=== PATIENT | female | born 1955 | race Caucasian/White ===

== ENCOUNTER 2018-08-30 11:55 | Emergency (ER) | payer MEDICARE, SELFPAY ==
[2018-08-30 11:57] VITALS: BP 132/82; PULSE 91; RESP 21; TEMP 36.9; O2SAT 96; BMI 32.9
[2018-08-30 12:02] VITALS: O2SAT 97
--- NOTE | 2018-08-30 12:34 | RAD_ITS ---
STUDY: X-RAY CHEST REASON FOR EXAM: Female, 63 years old. Shortness of breath. Dyspnea. TECHNIQUE: Single frontal view of the chest. COMPARISON: None. FINDINGS: The lungs are hyperexpanded. There is no demonstrated pleural abnormality. There is borderline cardiomegaly. Normal mediastinum and phillip. Normal visualized pulmonary arteries. Normal visualized aortic arch and descending thoracic aorta. Normal visualized thoracic spine. Normal visualized ribs, clavicles, and shoulders. There is no demonstrated abnormality of the visualized soft tissue structures of the upper abdomen. RAD/Chest 1 View (Portable) IMPRESSION: Borderline cardiomegaly with hyperexpansion. No acute pathology. Electronically Signed: Pardeep Cheung MD at 13:12 EST , Service support ,
--- NOTE | 2018-08-30 12:34 | EKG12_ITS ---
Test Reason : SOB Blood Pressure : / mmHG Vent. Rate : 091 BPM Atrial Rate : 091 BPM P-R Int : 154 ms QRS Dur : 068 ms QT Int : 356 ms P-R-T Axes : 076 078 063 degrees QTc Int : 437 ms Normal sinus rhythm Normal ECG Confirmed by ISIS HERNANDEZ, CATARINO ([id number]), market editor PAVEL CASIANO ([id number] on 09/03/2018 5:03:22 PM Referred By: ALBARO Confirmed By:CATARINO MARINELLI MD
[2018-08-30] MEDS: Albuterol 2.5 MG/3 ML VIAL.NEB. INHALATION ×2 (12:44)
[2018-08-30] MEDS: Ipratropium/Albuterol Sulfate 3 ML AMPUL.NEB INHALATION (12:44)
[2018-08-30 12:45] VITALS: PULSE 86; RESP 20
[2018-08-30 12:55] LABS: Absolute Lymphocyte Count 1.01 X10^3/ul (0.83-4.51); Absolute Neutrophil Count 1.8 X10^3/uL (2.0-7.7); Basophil# 0.02 X10^3/uL; Basophil% 0.6 % (0-1); Eosinophil# 0.12 X10^3/uL; Eosinophils% 3.7 % (0-5); Hematocrit 41.5 % (37-47); Hemoglobin 13.4 g/dl (12.0-15.0); Lymphocyte # 1.01 X10^3/ul (4.0); Lymphocyte % 31.1 % (19-41); Mean Corp Hgb Conc 32.3 g/gl (32-36); Mean Corpuscular Hgb 30.6 pg (27.0-32.0); Mean Corpuscular Volume 94.7 fL (81-99); Mean Platelet Vol. 10.2 fl (6.2-12.0); Monocyte% 9.2 % (0-10); Neutrophil % 55.4 % (47-70); POSITIVE COUNT NO; POSITIVE DIFFERENTIAL NO; POSITIVE MORPHOLOGY NO; Platelet Count 82 K/mm3 (150-450); RBC Distribution Width CV 14.6 % (11.6-14.6); RBC Distribution Width SD 50.2 fl (35.1-43.9); Red Blood Count 4.38 M/mm3 (4.2-5.4); White Blood Count 3.3 K/mm3 (4.4-11.0)
[2018-08-30] MEDS: MethylPREDNISolone 125 MG/2 ML Vial IV (13:07)
[2018-08-30 13:08] LABS: Anion Gap 8 (5-15); BUN 13 mg/dL (7-18); BUN/Creat Ratio 15.2 RATIO (10-20); Calcium,Total 8.7 mg/dL (8.5-10.1); Chloride 106 mmol/L (98-107); Creatinine, Serum 0.85 mg/dL (0.55-1.02); EST Glomerular Filtration Rate 72 mL/min (>60); Est Glom Filt Rate - Afr Amer 87 mL/min (>60); Glucose 123 mg/dL (74-106); Sodium Level 141 mmol/L (136-145)
[2018-08-30 15:21] VITALS: BP 125/75; PULSE 93; RESP 20; O2SAT 93
--- NOTE | 2018-08-30 16:14 | ED.DCSUM_ITS ---
- ER Visit Summary Date of Service: 08/30/18 Chief Complaint: Cough shortness of breath History of Present Illness: The patient is a 63 F who recently moved to [place] 2 weeks ago and has not followed up with PCP for her chronic COPD. She uses oxygen at home as needed but currently does not have her oxygen. She has no fever or chills. She has a chronic cough. Physical Examination: Not appear in acute distress. Slightly dry mucous membranes, no obvious facial deformity No C-spine tenderness supple neck. Regular rate and rhythm without any obvious murmurs Course lungs bilaterally speaking in full sentences without any obvious respiratory distress Abdomen soft and nontender no guarding or rebound Moves all extremities without any difficulty or pain. Skin does not show any obvious rashes or lesions, no trauma. Alert oriented ?3 with no gross focal deficit Emergency Department Course and Treatment: Initially patient had slight hypoxia, wheezing. After nebulizers, Solu-Medrol and observation she is now saturating at 94% on room air. I will discharge her with antibiotics, steroids and an inhaler. I will follow her up with PCP so she can get her home oxygen back. At this time he is oxygenating well enough for home. Disposition: Discharge stable condition Impression: COPD exacerbation This note was generated with [employer] dictation software. It may contain incorrect words, spelling, and punctuation that were not noted in review of the chart prior to signing ED Disposition - Plan for ED Patient: Disposition: Home or Assisted Living Chief Complaint: Shortness of Breath Prescriptions: Albuterol IH (ProAir) [Proair Hfa (SP)Vent Pts] 1 puff INHALATION Q4H PRN PRN #1 inhaler PRN Reason: Sob &/Or Wheezing Azithromycin 250 mg PO DAILY #4 tab Referrals: Barrie Forrester MD [STAFF PHYSICIAN] - 3-5 Days
[2018-08-30] MEDS: Triamcinolone Acetonide 40 MG/ML Vial IM (16:42)
[2018-08-30] MEDS: Azithromycin 250 MG Tablet 500 MG PO (16:42)
[2018-08-30 16:49] VITALS: BP 126/81; PULSE 91; RESP 16; O2SAT 98
--- NOTE | 2018-08-30 17:00 | CM.ED ---
SOCIAL WORK ASSESSMENT REFERRAL DATE:08/30/18 DATE OF ASSESSMENT:08/30/18 INFORMANT: PHYSICIAN REASON FOR CONSULT: D/C NEEDS, POSSIBLE HOME O2 INFORMATION OBTAINED FROM: PATIENT LIVING ARRANGEMENTS: PATIENT STATES RECENTLY MOVED TO [place] FROM [place], [place]. PT WAS LIVING WITH HER SISTER AND IS NOW MOVING IN WITH NEPHEW WHO IS HANDICAPPED. EMPLOYMENT/FINANCIAL: PT RECEIVES SOCIAL SECURITY DISABILITY SUPPORTS: PT STATES GOOD SUPPORT FROM FAMILY AND SERVICE PRINCESS NOHELIA. SOCIAL/FAMILY STRESSORS: PT VOICED FRUSTRATIONS WITH MOVING PROCESS AND OBTAINING SERVICES. PT GAVE PERMISSION FOR THIS WORKER TO SPEAK WITH SISTER REGARDING ALL D/C NEEDS TO ASSIST WITH COORDINATION OF TRANSPORTATION TO APPOINTMENTS. MENTAL HEALTH HX: PT ADMITS TO HX OF ANXIETY AND DEPRESSION AND STATES FOLLOWED WITH PSYCH IN [place]. PT IS PRESCRIBED SEROQUEL AND TRAZODONE. PT STATES DOCTOR IN [place] WROTE HER A 3 MONTH PRESCRIPTION WHEN SHE MOVED. PT STATES WILL NEED TO ESTABLISH SERVICES HERE IN [place]. DISCUSSED OPTIONS AND PT OPEN TO THIS WORKER SCHEDULING APPOINTMENT WITH THE [facility]. SUBSTANCE ABUSE HX: PT DENIES HX. INTERVENTIONS: SET UP NEW PT APPOINTMENT FOR PRIMARY CARE, SET UP INTAKE APPOINTMENT WITH THE [facility]. CALLED [facility] REGARDING POSSIBLE NEED FOR HOME O2 PT HAD O2 PREVIOUSLY. PER WORKER, INSURANCE DOES NOT COVER O2 IN THE ED. PT WOULD NEED PRIMARY CARE DOCTOR TO FOLLOW. UPDATED DR. IRVIN. ASSESSMENT: PT IS A 63 Y/O FEMALE WHO PRESENTS TO THE ED WITH SOB. PT STATES MOVED TO [place] FROM [place], [place] A COUPLE WEEKS AGO. PT WAS LIVING WITH HER SISTER, DAVE [phone] BUT IS IN THE PROCESS OF MOVING IN WITH HER NEPHEW. PT STATES IS INDEPENDENT WITH ADLS. SISTER ASSISTS WITH TRANSPORTATION NEEDS. DISCUSSED NEEDS FOR HOME GOING. PT OPEN TO THIS WORKER SETTING UP NEW PT APPOINTMENTS FOR PRIMARY CARE AND MENTAL HEALTH. PT ADMITS TO HX OF ANXIETY AND DEPRESSION AND HAS RAJAT POZONAMRATANANNETTE IN ROOM WITH HER. PT SHOWED THIS WORKER PAPERWORK FOR RAJAT POZO. PT VERY COOPERATIVE AND THANKFUL FOR THIS WORKER'S ASSISTANCE. CALL TO [facility]. NEW PT APPOINTMENT SCHEDULED FOR 09/03/17 AT 10AM. CALL TO THE [facility]. WORKER REPORTS OFFICE IS CLOSED AND HAS NO ONE AVAILABLE TO SCHEDULE INTAKE APPOINTMENT. THIS WORKER TO FOLLOW UP ON SUNDAY. UPDATED PT AND PT'S SISTER ON APPOINTMENTS. PLAN: HOME WITH NEW PATIENT APPOINTMENT SCHEDULED WITH PRIMARY CARE AND COUNSELING-F/U WITH SCHEDULING ON 09/02/18.
--- NOTE | 2018-09-02 12:10 | CM.ED ---
SOCIAL WORK NOTE CALL TO THE [facility]. INTAKE APPOINTMENT SCHEDULED FOR PT-APPOINTMENT 09/17/18 AT 9:30A. CALL TO PT'S SISTER, DAVE PER REQUEST TO UPDATE ON APPOINTMENT TIME AND DATE. PER DAVE, WILL UPDATE PT AND ASSIST WITH TRANSPORTATION TO AND FROM APPOINTMENT.
== END 2018-08-30 16:49 | disposition home or self-care (01) ==
PROVIDERS: Emergency Provider Emergency Medicine
DX: J44.1 Chronic obstructive pulmonary disease with (acute) exacerbation (principal); Z72.0 Tobacco use
CPT/HCPCS: 71045; 80048; 84484; 85025; 93005; 94640; 96372; 96374; 99285; A4216

== ENCOUNTER 2019-01-12 11:23 | Emergency (ER) | payer MEDICARE, SELFPAY ==
[2019-01-12 11:24] VITALS: BP 132/76; PULSE 89; RESP 15; TEMP 36.9; O2SAT 97; BMI 29.2
--- NOTE | 2019-01-12 11:57 | ED.RN ---
PT STATES SHE HAS BEEN HOMELESS FOR 6 DAYS, SOMETIMES 2 DAYS DEPENDING ON THE CONVERSATION. ONLY ITEMS THE PT BROUGHT WITH HER WAS HER PURSE AND HER SERVICE DOG DRESSED NICELY IN ITS CLEAN DRESS. PT ALSO IS DRESSED NICELY AND NO SIGN ARE PRESENT OF THE PT WALKING NOR SLEEPING IN THE KIM. PT IS A+OX3. STATES SHE IS GETTING HER SOCIAL SECURITY CHECK IN A COUPLE DAYS. STATES SHE DOES HAVE FAMILY IN [place]OWN BUT THEY DON'T WANT TO HELP HER. PT IS AMBULATING AROUND THE ROOM WITHOUT ANY SIGN OF DISTRESS OR DIFFICULTY. DOG WAS OFFERED A CHHAYA CRACKER AND REFUSED IT.
--- NOTE | 2019-01-12 12:09 | ED.RN ---
WAREHOUSE TEAM MEMBER IS NOT AVAILABLE AT THE HOSPITAL TODAY. PHYSICIAN NOTIFIED.
--- NOTE | 2019-01-12 12:18 | ED.VISSUMM ---
- ER Visit Summary Date of Service: 01/12/19 Chief Complaint: Nausea History of Present Illness: The patient is a 63 F presents the emergency department by dorothy with multiple complaints. The patient states that she is been homeless for the past 5 days. She states she is been living in the [facility]. She states she does not get her disability check for 4 days and when she gets it, she is going to be able to move in to trailer. However, she states she is been off out on her own with her service dog. [facility] because they would not [facility] her in. She denies any fevers or chills. She states that she has had a difficult time finding food and has been mildly nauseated. She denies cough or shortness of breath. Physical Examination: Vital signs reviewed General: Well-nourished, well-developed Head: Normocephalic, atraumatic Eyes: Pupils equal and reactive, extraocular muscles intact Neck, supple, no lymphadenopathy Heart: Regular rate and rhythm Respiratory: No distress, clear bilaterally Abdomen: Soft, nontender, nondistended, no peritoneal signs Back: Nontender Extremities: Nontender, no edema, no cords Skin: Normal color no rash Neuro: Alert and oriented, no focal or lateralizing deficits Test Results: [] Emergency Department Course and Treatment: The patient is absolutely no distress. She is very well-appearing. She has no systemic symptoms. She does not appear as if she is been living outdoors. She has a very reassuring exam. The patient was given fluid and I gave her a dose of her Seroquel. She now states that her brother will come and pick her up and take her home. The patient will be discharged. Treatment Plan: [] Disposition: Discharge Impression: 1. Nausea This note was generated with [employer] dictation software. It may contain incorrect words, spelling, and punctuation that were not noted in review of the chart prior to signing ED Disposition - Plan for ED Patient: Instructions: ED Screening Exam Medical Nonurgent Referrals: Rey Anderson MD [Primary Care Provider] -
--- NOTE | 2019-01-12 12:18 | ED.RN ---
PT WAS GIVEN A SANDWICH, CHEESE STICK AND WATER. EXPLAINED THAT WE DID NOT HAVE SOCIAL WORK AVAILABLE TO COME SEE HER. PT STATED THAT WAS OK AND REQUESTED A DOSE OF HER SEROQUEL AND TO CALL HER BROTHER TO COME PICK HER UP.
[2019-01-12] MEDS: QUEtiapine 100 MG Tablet 400 MG PO (12:51)
--- NOTE | 2019-01-12 12:55 | ED.RN ---
PT GIVEN MEDS AND DISCHARGE INSTRUCTIONS. ALSO CALLED THE [facility] FOR HER SINCE HER BROTHER IS NOT ANSWERING HIS PHONE. PT STATES THE ENVIRONMENTAL SYSTEMS COORDINATOR THERE TOLD HER SHE WOULD GET THE PT A CAB TO RETURN FROM THE HOSPITAL.
[2019-01-12 12:56] VITALS: BP 136/74; PULSE 62; RESP 15; O2SAT 97
== END 2019-01-12 12:56 | disposition home or self-care (01) ==
PROVIDERS: Emergency Provider Emergency Medicine; Family Provider Internal Medicine; PCP Internal Medicine
DX: R11.0 Nausea (principal); J44.9 Chronic obstructive pulmonary disease, unspecified; Z59.0 Homelessness
CPT/HCPCS: 99284

== ENCOUNTER 2020-06-02 20:12 | Emergency (ER) | payer MEDICARE, MEDICAID, SELFPAY ==
[2020-06-02] VITALS (7 sets, daily range): BP systolic 92–109; BP diastolic 58–75; PULSE 84–108; RESP 16–20; TEMP 36.6–36.9; O2SAT 92–99; BMI 32.5
--- NOTE | 2020-06-02 20:23 | EKG12_ITS ---
Test Reason : WEAKNESS Blood Pressure : / mmHG Vent. Rate : 091 BPM Atrial Rate : 091 BPM P-R Int : 148 ms QRS Dur : 066 ms QT Int : 332 ms P-R-T Axes : 071 071 052 degrees QTc Int : 408 ms Normal sinus rhythm Low voltage QRS Nonspecific ST abnormality Abnormal ECG Confirmed by OFE HERNANDEZ, OLI ([id number]), editor city JOSÉ ANTONIO LI ([id number]) on 06/08/2020 8:14:06 AM Referred By: EDUARDO Confirmed By:OLI THAKUR MD
--- NOTE | 2020-06-02 20:25 | ED.VIS.GEN ---
History of Present Illness Chief Complaint: Weakness Informant: Patient Narrative: 64-year-old female with no significant past medical history presents with concern for rash. Patient states that she has weakness and a rash that began on her legs yesterday. States it is spread to her upper extremities. States that she does have pain in her legs but not in her arms. Denies any headache, vision change, fever, chills, cough, nausea, vomiting, abdominal pain, chest pain, shortness of breath. Past Medical History - Allergies and Home Meds Allergies/Adverse Reactions: Allergies ondansetron [From Zofran] Allergy (Verified 06/02/20 20:20) Anaphylaxis Primary Care Physician: Rey Anderson MD [Primary Care Provider] - Past Medical History: None Lives: Alone Smoking Status: Current every day smoker Alcohol: None Drugs: None Review of Systems General: Reports: Malaise. Denies: Chills, Fever, Sweats Eyes: Denies: Visual changes - bilaterally, Diplopia ENT: Denies: Rhinorrhea, Sore throat Cardiovascular: Denies: Chest pain, Palpitations Respiratory: Denies: Dyspnea, Cough, Dyspnea on exertion Gastrointestinal: Denies: Abdominal pain, Nausea, Vomiting, Diarrhea, Melena, Hematochezia Genitourinary: Denies: Dysuria, Hematuria, Frequency Musculoskeletal: Denies: Back pain, Extremity Pain Skin: Reports: Rash. Denies: Wounds Neurological: Denies: Headache, Weakness, Numbness Physical Exam Vital Signs/Narrative: Vital Signs Temp Pulse Resp BP Pulse Ox 06/02/20 20:13 98.5 F 108 H 20 H 109/58 L 92 Inital Vital Signs reviewed: Yes General: Well nourished, Well developed, No Acute Distress Head: Normocephalic, Atraumatic Eyes: Perrl, EOMI ENT: Moist mucous membranes, No rhinorrhea Neck: Supple, Nontender Cardiovascular: Regular rate, Regular rhythm, No murmurs Respiratory: No distress, CTA bilaterally, Chest nontender Abdomen: Soft, Nontender, Nondistended, Normal bowel sounds Back: Nontender, Normal Inspection Extremities: Nontender, No edema Skin: - - Diffuse peticheal/purpuric rash. Neurological: Alert, Oriented x3, Cranial nerves II-XII grossly intact, Normal Strength, Normal Sensation Psychological: Normal affect, Normal Mood Diagnostic/Tx/Re-eval Clinical Impression(s) from Imaging Studies Chest X-Ray 06/02/20 21:10 IMPRESSION: No acute cardiopulmonary process identified. Electronically Signed: Gurdeep Dominguez, at 22:03 EDT Tel , Service support , Laboratory Data 06/02/20 06/02/20 06/02/20 20:35 20:40 20:40 WBC 2.9 L RBC 3.96 L Hgb 12.8 Hct 39.2 MCV 99.0 MCH 32.3 H MCHC 32.7 RDW Std Deviation 52.6 H RDW Coeff of Jaci 14.5 Plt Count 35 L* MPV 10.0 Immature Gran % (Auto) 0.300 Neut % (Auto) 64.2 Lymph % (Auto) 22.3 [place] % (Auto) 11.5 H Eos % (Auto) 1.4 Baso % (Auto) 0.3 Absolute Neuts (auto) 1.8 L Absolute Lymphs (auto) 0.64 L Nucleated RBC % 0 Differential Comment SCANNED Diff Path Review May foll Platelet Estimate MKD DEC PT 13.4 INR 1.1 APTT 21.6 L D-Dimer Quant (PE/DVT) 3.23 H* Sodium Potassium Chloride Carbon Dioxide Anion Gap BUN Creatinine Estim Creat Clear Calc Est GFR (MDRD) Af Amer Est GFR (MDRD) Non-Af BUN/Creatinine Ratio Glucose Lactic Acid Calcium Total Bilirubin AST ALT Alkaline Phosphatase Lactate Dehydrogenase Troponin I Total Protein Albumin Globulin Albumin/Globulin Ratio Urine Color Roseanna Urine Clarity Clear Urine pH 5.0 Ur Specific [place] 1.025 Urine Protein 30 H Urine Glucose (UA) Normal Urine Ketones 5 H Urine Occult Blood 250 H Urine Nitrite Negative Urine Bilirubin 1 H Urine Urobilinogen 4 H Ur Leukocyte Esterase 100 H Urine RBC 5-10 SEEN Urine WBC 0-5 SEEN Ur Squamous Epith Cells 0-5 SEEN Urine Bacteria RARE Hyaline Casts 5-10 SEEN Urine Mucus 2+ 06/02/20 06/02/20 20:40 21:10 WBC RBC Hgb Hct MCV MCH MCHC RDW Std Deviation RDW Coeff of Jaci Plt Count MPV Immature Gran % (Auto) Neut % (Auto) Lymph % (Auto) [place] % (Auto) Eos % (Auto) Baso % (Auto) Absolute Neuts (auto) Absolute Lymphs (auto) Nucleated RBC % Differential Comment Diff Path Review Platelet Estimate PT INR APTT D-Dimer Quant (PE/DVT) Sodium 138 Potassium 4.0 Chloride 103 Carbon Dioxide 26.0 Anion Gap 9 BUN 19 H Creatinine 0.96 Estim Creat Clear Calc 51.12 Est GFR (MDRD) Af Amer 75 Est GFR (MDRD) Non-Af 62 BUN/Creatinine Ratio 19.8 Glucose 143 H Lactic Acid 2.4 H* Calcium 8.1 L Total Bilirubin 0.40 AST 37 ALT 30 Alkaline Phosphatase 42 L Lactate Dehydrogenase 230 Troponin I < 0.015 Total Protein 7.5 Albumin 2.6 L Globulin 4.9 H Albumin/Globulin Ratio 0.5 L Urine Color Urine Clarity Urine pH Ur Specific [place] Urine Protein Urine Glucose (UA) Urine Ketones Urine Occult Blood Urine Nitrite Urine Bilirubin Urine Urobilinogen Ur Leukocyte Esterase Urine RBC Urine WBC Ur Squamous Epith Cells Urine Bacteria Hyaline Casts Urine Mucus - Rhythm Strip Rhythm Strip: Sinus Rhythm Rate: 91 Ectopy: None - EKG Initial EKG Interpretation: Sinus Rhythm - Normal sinus rhythm at 91 bpm. OH interval 148 ms. QTC of 408 ms. No evidence of ST elevation or depression at this time. - Medical Decision Making Patient appears well and nontoxic. Significant petechial and purpuric rash on the lower and upper extremities. Lab work shows significant thrombocytopenia 35,000. Patient also has a leukopenia. D-dimer elevated. EKG nonischemic. Troponin negative. Patient has no hypoxemia. No shortness of breath or chest pain. Spoke initially with Dr. Chapa who advised transfer to tertiary facility. Patient agreeable and will be transferred to [facility]. Spoke with hospitalist, Dr. Sears, accepted the patient. Patient transferred in stable condition. Impression: 1. Thrombocytopenia 2. Leukopenia 3. Elevated D Dimer 4. Weakness ED Disposition - Plan for ED Patient: Disposition: [facility] Referrals: Rey Anderson MD [Primary Care Provider] -
[2020-06-02 20:43] LABS: Color, Urine Amber (Yellow); Glucose, Dipstick Normal (Normal); Ketone-Dipstick 5 mg/dl (Negative); Leukocyte Esterase-Dipstick 100 /ul (Negative); Nitrite-Dipstick Negative (Negative); Occult Blood-Urine 250 /ul (Negative); Protein-Dipstick 30 mg/dl (Negative); Specific Gravity, Urine 1.025 (1.002-1.030); Urine Clarity Clear (Clear); Urine Urobilinogen 4 mg/dl (Normal)
[2020-06-02 20:46] LABS: Urine Bilirubin Dipstick 1 mg/dL (Negative)
[2020-06-02 20:49] LABS: Bacteria RARE /hpf (None Seen); Hyaline Cast 5-10 SEEN /lpf (0-5); Mucous, Urine 2+ /hpf (<or=2+); Red Blood Cells-Urine 5-10 SEEN /hpf (0-5); Squamous Epithelial Cells - UA 0-5 SEEN /hpf (5-10); White Blood Cells 0-5 SEEN /hpf (0-5)
--- NOTE | 2020-06-02 21:07 | CM.ED ---
Social Work Consult: Suicidal Informant: Nursing staff Chief Complaint: have you looked at my legs. Patient noted to have a rash on arms and reports to have same rash on legs. Marital/Social History: Single dude. Patient then later refers to ex- that a few years ago. Living Situation: Lives with Abhijeet Lee in a camper. Patient reports to have met Ct year ago. Patient reports to have last showered a week ago. Patient reports to be having difficulty caring for self. Support/Resources: [facility] and sees Kareem every four months. Patient denies any psychiatric services. Patient active with Food stamps and receives $200/monthly. PCP: Dr. Anderson Education/Employment History: Disability. Denies any issues with comprehension or understanding. Mental Health Treatment/History: Patient reports mental health history but is not able to focus to provide this social services counselor with specific diagnosis's. Unclear if patient is currently on psychiatric medications or has any history of inpatient psychiatric placement. Triggers/Stressors: tired of living in a camper dude. Patient denies any housing program supports currently. Abuse Issues: Denies Substance Abuse Hx: Patient reports history of cocaine abuse and to have been clean for 2 years. Patient denies any active substance abuse/use. Risk to Self/Others: Patient reports I always have thoughts of dying. Patient states but won't kill myself, I need to take care of my baby. Patient reports to have a therapy dog, that keeps me going. Patient states if she dies, I am . Patient states to have thought about taking pills as a plan if would . Patient stating multiple times I got to keep going for . Patient denies any homicidal thoughts/plans/intents. Patient denies intent to complete suicide currently. Patient reports to have medications in the home that patient would have access too, again patient states but I want to live for . Patient denies any thoughts of harming others. Mental Status Exam: A&Ox3 Appearance/General Behavior: Disheveled. Unkept. Mood/Affect: Elevated. Pleasant. Communication Pattern: Responds to majority of questions. Sometimes with answers that do not makes sense. Thought Process: Denies active hallucinations or paranoia. Judgement: Fair Assessment: Met with patient in room. Introduced self and social services counselor role. Patient agreeable to speak with this social services counselor. Patient reports to have came to the hospital today to get my legs checked out. When this social services counselor asked patient mental health questions patient answering questions casually with limited interest in topic. This social explained to patient that medical team is concerned about patient current well being and that patient might need to stay over night in the hospital patient states yeah, I get to go to the hospital that is fun. Patient with bizarre behavior and comments throughout assessment. Patient states I really am happen at one point in the assessment. Patient also commenting on how patient is now sleeping on the couch due to Abhijeet having rib fractures and we haven't had sex in five weeks. Patient reports to have transportation provided through Abhijeet. Patient with no questions for this social services counselor. Updated medical team on above. Would recommend inpatient psychiatric placement for stabilization of acute psychosis when/if patient is medically cleared. Patient not actively suicidal as per patient report to want to live and no intent to complete suicide currently. Would recommend continued monitoring. Dr. Anaya updated on above. Mehnaz mcclain MSW, MANOLO
[2020-06-02 21:10] LABS: International Normalized Ratio 1.1; Prothrombin Time (Protime)PT. 13.4 SECONDS (11.7-14.9)
--- NOTE | 2020-06-02 21:10 | RAD_ITS ---
STUDY: X-RAY CHEST REASON FOR EXAM: Female, 64 years old. WEAKNESS, PURPURA RASH ON LEG WITH LEG PAIN STARTED YESTERDAY TECHNIQUE: Single frontal view of the chest. COMPARISON: 08/30/2018 FINDINGS: Cardiac silhouette unremarkable. Pulmonary vascularity unremarkable. Aorta unremarkable. No focal airspace opacities. No pleural effusions. Upper abdomen unremarkable. Osseous structures intact. No pneumothorax. RAD/Chest 1 View (Portable) IMPRESSION: No acute cardiopulmonary process identified. Electronically Signed: Gurdeep Dominguez, at 22:03 EDT Tel , Service support ,
[2020-06-02 21:11] LABS: Partial Thromboplast Time 21.6 Seconds (24.1-36.2)
[2020-06-02 21:28] LABS: Absolute Lymphocyte Count 0.64 X10^3/uL (0.83-4.51); Absolute Neutrophil Count 1.8 X10^3/uL (2.0-7.7); Basophil# 0.01 X10^3/uL; Basophil% 0.3 % (0-1); Eosinophil# 0.04 X10^3/uL; Eosinophils% 1.4 % (0-5); Hematocrit 39.2 % (37-47); Hemoglobin 12.8 g/dL (12.0-15.0); Lymphocyte # 0.64 X10^3/ul (4.0); Lymphocyte % 22.3 % (19-41); Mean Corp Hgb Conc 32.7 g/dL (32-36); Mean Corpuscular Hgb 32.3 pg (27.0-32.0); Monocyte# 0.33 X10^3/uL; Monocyte% 11.5 % (0-10); NRBC Flagged by Analyzer 0 % (0-5); Neutrophil # 1.84 X10^3/uL (2.7-7.7); Neutrophil % 64.2 % (47-70); POSITIVE COUNT YES; RBC Distribution Width CV 14.5 % (11.6-14.6); RBC Distribution Width SD 52.6 fl (35.1-43.9); Red Blood Count 3.96 M/mm3 (4.2-5.4); White Blood Count 2.9 K/mm3 (4.4-11.0)
[2020-06-02 21:38] LABS: Differential Indicated SCAN CRITERIA MET
[2020-06-02 21:42] LABS: D-Dimer Quantitative (DVT/PE) 3.23 FEU/ug/m (0.27-0.49); Platelet Count 35 K/mm3 (150-450)
[2020-06-02 21:43] LABS: Differential Comment SCANNED; Platelet Estimate MKD DEC (ADEQ)
[2020-06-02 21:46] LABS: ALB/GLOB Ratio 0.5 RATIO (0.9-2.4); AST(SGOT) 37 U/L (15-37); Alanine Aminotransfer ALT/SGPT 30 U/L (13-56); Albumin, Serum 2.6 g/dL (3.2-5.0); Alkaline Phosphatase 42 U/L (45-117); Anion Gap 9 (5-15); BUN 19 mg/dL (7-18); BUN/Creat Ratio 19.8 RATIO (10-20); Calcium,Total 8.1 mg/dL (8.5-10.1); Chloride 103 mmol/L (98-107); Creatinine, Serum 0.96 mg/dL (0.55-1.02); EST Glomerular Filtration Rate 62 mL/min (>60); Est Glom Filt Rate - Afr Amer 75 mL/min (>60); Estimated Creatinine Clearance 51.12 ml/min; Globulin 4.9 g/dL (2.2-4.2); Glucose 143 mg/dL (74-106); LDH 230 U/L (84-246); Protein, Total 7.5 g/dL (6.4-8.2); Sodium Level 138 mmol/L (136-145)
[2020-06-02 22:06] LABS: Lactic Acid 2.4 mmol/L (0.4-1.9)
[2020-06-03 01:19] LABS: Reflex Lactate? Y
[2020-06-03 13:55] LABS: Pathologist Review Reviewed
== END 2020-06-03 00:05 | disposition short-term general hospital (02) ==
PROVIDERS: Emergency Provider Emergency Medicine; PCP Internal Medicine
DX: R53.1 Weakness (principal); D69.6 Thrombocytopenia, unspecified; D72.819 Decreased white blood cell count, unspecified; R79.89 Other specified abnormal findings of blood chemistry; R21 Rash and other nonspecific skin eruption; M79.606 Pain in leg, unspecified; F17.200 Nicotine dependence, unspecified, uncomplicated
CPT/HCPCS: 36415; 71045; 80053; 81001; 83605; 83615; 84484; 85025; 85379; 85610; 85730; 87040; 87086; 93005; 94760; 99283; 99285; P9612; A4216

== ENCOUNTER 2020-06-27 03:56 | Emergency (ER) | payer MEDICARE, MEDICAID, SELFPAY ==
[2020-06-02 20:13] VITALS: BMI 32.5
[2020-06-27 03:58] VITALS: BP 117/76; PULSE 101; RESP 20; TEMP 36.7; O2SAT 94; BMI 32.7
[2020-06-27] MEDS: traMADol 50 MG Tablet PO (04:21)
--- NOTE | 2020-06-27 04:27 | ED.VIS.GEN ---
History of Present Illness Chief Complaint: General Illness Informant: Patient Onset: Weeks - 3 Narrative: Patient here for evaluation right leg wound ulcer past 2 to 3 weeks. Patient was [facility] transferred up from here due to thrombocytopenia. She states she had a biopsy of that leg. Wound has not healed. She is seen multiple doctors she is currently on doxycycline. Reports leg swelling is also on diuretic and potassium. Denies fever. She has been using alcohol, peroxide, iodine. She is not diabetic. Tobacco history. 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 She reports she was not told anything [facility], she was sent home on oxygen. Review of [facility], notes she was in [facility] from June 03 through the . 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 She was discharged with platelets of 67 compared to 35 when transferred up there. She is found to be noncompliant with her obstructive sleep apnea qualify for home oxygen. She had chest CT chest abdomen pelvis with no significant findings. She had ultrasounds of her legs that were negative. She was seen by pulmonary and GI. She was sent for outpatient follow-up. Prior similar symptoms: No Past Medical History - Allergies and Home Meds Allergies/Adverse Reactions: Allergies ondansetron [From Zofran] Allergy (Verified 06/27/20 03:58) Anaphylaxis Primary Care Physician: Rey Anderson MD [Primary Care Provider] - Past Medical History: - - Bipolar disorder, sleep apnea, hepatitis B, thrombocytopenia, COPD Smoking Status: Current every day smoker Review of Systems General: Denies: Chills, Fever, Sweats Eyes: Denies: Visual changes - bilaterally, Diplopia ENT: Denies: Rhinorrhea, Sore throat Cardiovascular: Denies: Chest pain, Palpitations Respiratory: Denies: Dyspnea, Cough, Dyspnea on exertion Gastrointestinal: Denies: Abdominal pain, Nausea, Vomiting, Diarrhea, Melena, Hematochezia Genitourinary: Denies: Dysuria, Hematuria, Frequency Musculoskeletal: Reports: Arthralgias. Denies: Back pain, Extremity Pain Skin: Reports: Wounds. Denies: Rash Neurological: Denies: Headache, Weakness, Numbness Physical Exam Vital Signs/Narrative: Vital Signs Temp Pulse Resp BP Pulse Ox 06/27/20 03:58 98.1 F 101 H 20 H 117/76 94 Inital Vital Signs reviewed: Yes General: Well nourished, Well developed, No Acute Distress, - - Nontoxic Head: Normocephalic, Atraumatic Eyes: Perrl, EOMI ENT: Moist mucous membranes, No rhinorrhea Neck: Supple, Nontender Cardiovascular: Regular rate, Regular rhythm, No murmurs Respiratory: No distress, CTA bilaterally, Chest nontender Abdomen: Soft, Nontender, Nondistended, Normal bowel sounds Back: Nontender, Normal Inspection Extremities: Nontender, No edema Skin: - - Right lower extremity: 2.5 cm ulceration with eschar, minimal erythema, minimal drainage. No exudates. Pulses were intact distally. There was improving TKA lesions on her lower extremities. Neurological: Alert, Oriented x3, Cranial nerves II-XII grossly intact, Normal Strength, Normal Sensation Diagnostic/Tx/Re-eval - Medical Decision Making Patient with a leg ulcer with eschar that is healing, is currently on doxycycline. She does have tobacco history. Discussed wound care with the patient and given follow-up with wound care as an outpatient. Discussed tobacco cessation. Wound with cleansed and dressed by nursing in the department with Xeroform. Patient's arthralgias, there is no signs of infection. Tylenol with no relief I will avoid NSAIDs due to her history of thrombocytopenia. She started on tramadol with a short course. She will follow-up with her PCP for reevaluation as an outpatient further work-up and treatment. All questions were answered. ED Disposition - Plan for ED Patient: Disposition: Home or Assisted Living Diagnosis: Arthralgia, Leg ulcer Instructions: ED JOINT PAIN, ED Ulcer Skin Simple Prescriptions: traMADol [Ultram] 50 mg PO Q6H PRN PRN 3 Days #12 tablet PRN Reason: Pain Referrals: Wound Health [Outside] - 3-5 Days Rey Anderson MD [Primary Care Provider] - 5-7 Days
[2020-06-27 04:47] VITALS: PULSE 95; RESP 20; O2SAT 95
--- NOTE | 2020-06-27 04:47 | ED.RN ---
ASSISTED PATIENT GETTING DRESSED, PUTTING SOCKS AND SHOES ON. WHEELCHAIR TO LOBBY. PT D/C WITH S/O HOME.
== END 2020-06-27 04:48 | disposition home or self-care (01) ==
PROVIDERS: Emergency Provider Emergency Medicine; PCP Internal Medicine
DX: M25.50 Pain in unspecified joint (principal); M79.89 Other specified soft tissue disorders; L97.919 Non-pressure chronic ulcer of unspecified part of right lower leg with unspecified severity; D69.6 Thrombocytopenia, unspecified; J44.9 Chronic obstructive pulmonary disease, unspecified; F31.9 Bipolar disorder, unspecified; G47.33 Obstructive sleep apnea (adult) (pediatric); F17.200 Nicotine dependence, unspecified, uncomplicated; Z88.8 Allergy status to other drugs, medicaments and biological substances; Z91.19 Patient's noncompliance with other medical treatment and regimen
CPT/HCPCS: 99284

== ENCOUNTER 2020-07-13 14:28 | Emergency (ER) | payer MEDICARE, MEDICAID, SELFPAY ==
[2020-07-13 14:29] VITALS: BP 136/68; PULSE 91; RESP 16; TEMP 36.6; O2SAT 94; BMI 31.2
[2020-07-13 14:33] VITALS: BP 136/68; PULSE 91; RESP 19; TEMP 36.6; O2SAT 94
--- NOTE | 2020-07-13 14:51 | ED.VIS.GEN ---
History of Present Illness Chief Complaint: Wound Informant: Patient Onset: Weeks Current Severity: Moderate Maximum Severity: Moderate Narrative: Patient presents with wound to her right leg and frequent falls at home. EMS states they were called to her home multiple times over the weekend for lift assist. Patient states that when she would get out of bed she would fall. She has a chronic nonhealing wound to the right lower leg. She was admitted here in May and ultimately transferred to [facility] due to thrombocytopenia. A biopsy was taken at that time. Patient was seen here in the ER on the where wound was examined and not felt to be infected. Wound was cleansed and dressed. Patient states that she was late for her appointment at the wound care center and they would not see her. She has been trying to use peroxide or iodine on the wound but has not been placing dressings or keeping it wrapped. EMS notes that her home was in deplorable conditions. APS is involved and reportedly APS requested that the squad bring her here. - Past Medical History (1) Bipolar disorder Status: Chronic (2) Obstructive sleep apnea Status: Chronic (3) Hepatitis B Status: Chronic (4) COPD (chronic obstructive pulmonary disease) Status: Chronic Past Medical History - Allergies and Home Meds Allergies/Adverse Reactions: Allergies ondansetron [From Zofran] Allergy (Verified 06/27/20 03:58) Anaphylaxis Primary Care Physician: Elizabet Shetty NP, CHAIN MAKER [employer] [Primary Care Provider] - Prior records reviewed: Yes Lives: Spouse/ Significant Other Smoking Status: Current every day smoker Review of Systems General: Denies: Chills, Fever Eyes: Denies: Visual changes - bilaterally ENT: Denies: Bilateral ear pain Cardiovascular: Denies: Chest pain Respiratory: Denies: Dyspnea, Cough Gastrointestinal: Denies: Abdominal pain, Vomiting, Diarrhea Genitourinary: Denies: Dysuria Musculoskeletal: Reports: Extremity Pain Skin: Reports: Wounds Neurological: Denies: Headache Hematologic: Denies: Easy bruising, Easy bleeding Allergy: Denies: Uticaria Physical Exam Vital Signs/Narrative: Vital Signs Temp Pulse Resp BP Pulse Ox 07/13/20 14:33 98 F 91 19 H 136/68 H 94 07/13/20 14:29 98 F 91 16 136/68 H 94 Inital Vital Signs reviewed: Yes General: Well nourished, Well developed Head: Normocephalic ENT: Moist mucous membranes Neck: Supple Cardiovascular: Regular rate, Regular rhythm Respiratory: No distress, CTA bilaterally Abdomen: Soft, Nontender, Normal bowel sounds Back: Nontender Extremities: - - Patient has a 2 and half to 3 cm diameter ulcerated lesion to the right lateral lower leg. Eschar is noted. Minimal surrounding erythema but not consistent with cellulitis or acute infection. Neurological: Alert, Oriented x3 Psychological: Normal affect Diagnostic/Tx/Re-eval Impressions Tibia/Fibula X-Ray 07/13/20 15:36 IMPRESSION: Normal right tibia and fibula. Electronically Signed: Ousmane Esqueda, at 16:33 EST Tel , Service support , 07/13/20 15:36 Xray Tibia [Tibia & Fibula 2 Views] [RAD] Stat Laboratory Results 07/13/20 07/13/20 15:10 15:10 WBC 2.4 L RBC 3.61 L Hgb 12.0 Hct 37.5 MCV 103.9 H MCH 33.2 H MCHC 32.0 RDW Std Deviation 72.2 H RDW Coeff of Jaci 19.1 H Plt Count 24 L* MPV 11.8 Immature Gran % (Auto) 0.400 Neut % (Auto) 42.4 L Lymph % (Auto) 36.9 Carlton % (Auto) 19.5 H Eos % (Auto) 0.4 Baso % (Auto) 0.4 Absolute Neuts (auto) 1.0 L Absolute Lymphs (auto) 0.87 Nucleated RBC % 0 Diff Path Review May foll Platelet Estimate MKD DEC Hypochromasia RARE Anisocytosis 1+ Macrocytosis 1+ Sodium 138 Potassium 4.8 Chloride 104 Carbon Dioxide 31.0 Anion Gap 3 L BUN 14 Creatinine 0.74 Estim Creat Clear Calc 68.20 Est GFR (MDRD) Af Amer 101 Est GFR (MDRD) Non-Af 84 BUN/Creatinine Ratio 18.9 Glucose 85 Calcium 8.5 - Medical Decision Making Patient has a chronic right lower extremity wound that appears to be unchanged when compared to prior ER visit from the eighth of this month. There is no sign of acute infection. Patient does have a chronically low platelet count and this is consistent with when she was last transferred to [facility] as well as when she was discharged from [facility]. Patient states she has never seen a credit administration officer will be referred to 1 for follow-up. I did discuss the importance with her of not falling or having any other injuries that she would be more prone to bleeding. Wound will be cleansed and dressed. Should be referred back to the wound care center as this is going to be imperative for her to have appropriate wound healing. Social work did discuss the case with Adult Protective Services. They were requesting the patient be placed in a group home as they were concerned she could not care for herself. At this time patient is alert and oriented x3 and able to make her own decisions. At this time she is refusing group home placement and states that she can take care of herself. ED Disposition - Plan for ED Patient: Disposition: Home or Assisted Living Diagnosis: Thrombocytopenia, Leg wound, right Instructions: ED Wound Care, Thrombocytopenia Referrals: Yasir Isabel MD [NON-STAFF] - As soon as possible Additional Instructions: Follow-up with the Wound Center as soon as possible. Phone number for appointment is [phone]
[2020-07-13 15:22] LABS: Absolute Lymphocyte Count 0.87 X10^3/uL (0.83-4.51); Basophil# 0.01 X10^3/uL; Basophil% 0.4 % (0-1); Eosinophil# 0.01 X10^3/uL; Eosinophils% 0.4 % (0-5); Hematocrit 37.5 % (37-47); Lymphocyte # 0.87 X10^3/ul (4.0); Lymphocyte % 36.9 % (19-41); Mean Corpuscular Hgb 33.2 pg (27.0-32.0); Mean Corpuscular Volume 103.9 fL (81-99); Mean Platelet Vol. 11.8 fl (6.2-12.0); Monocyte# 0.46 X10^3/uL; Monocyte% 19.5 % (0-10); NRBC Flagged by Analyzer 0 % (0-5); Neutrophil % 42.4 % (47-70); POSITIVE COUNT YES; POSITIVE MORPHOLOGY YES; RBC Distribution Width CV 19.1 % (11.6-14.6); RBC Distribution Width SD 72.2 fl (35.1-43.9); Red Blood Count 3.61 M/mm3 (4.2-5.4); White Blood Count 2.4 K/mm3 (4.4-11.0)
[2020-07-13 15:23] LABS: Differential Indicated SCAN CRITERIA MET
[2020-07-13 15:25] LABS: Platelet Count 24 K/mm3 (150-450)
--- NOTE | 2020-07-13 15:35 | CM.ED ---
Social Work Consult: APS Informant: Dr. Aguilar Per EMS report APS had dorothy called and wanted patient transferred to [facility] ED for work-up. Telephone call to [facility] Timothy TAYLOR. Timothy reports concern for patient living environment and patient being able to care for self in the home. Timothy reports to believe that patient would benefit from a short-term half-way stay for strengthening. This social media designer met with patient in room. Patient is familiar to this social media designer. Patient remembers this social media designer from prior interactions. In the past this social media designer met with patient for mental health evaluation. Patient denies any current concerns for mental health or active suicidal thoughts/plans/intents. Patient confirms to continue to be living in [facility] with letyienAbhijeet barnes. Patient reports to have food in the home. Patient reports that Abhijeet assist with transportation. This social media designer inquired if patient has been able to take care of self in the home. Patient reports I am unsteady. This social media designer inquired if patient is open to half-way placement short term to work on strengthening. Patient ask can my dog come. This social media designer educated patient that patient Princess beth would not be able to come to the half-way. Patient states then I will go home. Patient states to be able to care for self I just need another place to live. This social media designer encouraged patient to continue to follow up with APS for assistance on finding other housing. Patient denies concerns on returning to home. Telephone call to Timothy TAYLOR. Timothy updated on above. This social media designer encouraged referral for waiver as maybe patient would qualify for assisted living setting. Timothy voices plan to follow up with patient. Medical team updated on above. This social media designer did observe patient walking with nursing staff independently in the hallway to the bathroom. Nursing did not assist patient in the bathroom. PLAN: Discharge to home with letyienAbhijeet barnes and princess beth with continued follow up from APS. Mehnaz DUMAS, MANOLO
--- NOTE | 2020-07-13 15:36 | RAD_ITS ---
INDICATION: OPEN WOUND AT LEVEL OF MY MARKER ON LATERAL SIDE OF RT LEG EXAMINATION/TECHNIQUE: X-RAY - RIGHT XR Tibia/Fibula 2 Views 2 VIEWS COMPARISON: None. FINDINGS: Studies of the right tibia and fibula in 2 projections shows no evidence of fracture, dislocation, or bony destruction. RAD/Tibia & Fibula 2 Views IMPRESSION: Normal right tibia and fibula. Electronically Signed: Ousmane Esqueda, at 16:33 EST Tel , Service support ,
[2020-07-13 15:43] LABS: Anion Gap 3 (5-15); BUN 14 mg/dL (7-18); BUN/Creat Ratio 18.9 RATIO (10-20); Calcium,Total 8.5 mg/dL (8.5-10.1); Chloride 104 mmol/L (98-107); Creatinine, Serum 0.74 mg/dL (0.55-1.02); EST Glomerular Filtration Rate 84 mL/min (>60); Est Glom Filt Rate - Afr Amer 101 mL/min (>60); Glucose 85 mg/dL (74-106); Potassium 4.8 mmol/L (3.5-5.1); Sodium Level 138 mmol/L (136-145)
[2020-07-13 16:07] LABS: Platelet Estimate MKD DEC (ADEQ)
[2020-07-13 16:08] LABS: Anisocytosis 1+; Hypochromasia RARE; Macrocytosis 1+
[2020-07-13 16:55] VITALS: BP 139/75; PULSE 92; RESP 20; O2SAT 94
[2020-07-13] MEDS: Acetaminophen 500 MG Tablet 1000 MG PO (16:59)
[2020-07-13 17:12] VITALS: BP 139/75; PULSE 92; RESP 20; O2SAT 94
--- NOTE | 2020-07-13 17:13 | ED.RN ---
PT WAS UP W/ MINIMAL ASSISTANCE TO BATHROOM, PT THEN AMBULATED BACK TO BED INDEPENDENTLY. PT'S RLE WAS DRESSED WITH ADAPTIC, TELFA AND WRAPPED W/KERLIX, SECURED WITH TAPE.
--- NOTE | 2020-07-13 17:15 | ED.RN ---
PT ATTEMPTED TO CALL MALE FRIEND FOR [facility], FRIEND IS NOT ANSWERING PHONE, NATALYA SMALL RN, LEFT MESSAGE TO CALL E.D.
--- NOTE | 2020-07-13 17:21 | ED.RN ---
[facility] CONTACTED TO TRY TO REACH PT SIGNIFICANT OTHER
[2020-07-14 12:12] LABS: Pathologist Review Reviewed
== END 2020-07-13 17:45 | disposition home or self-care (01) ==
PROVIDERS: Emergency Provider Emergency Medicine; PCP Nurse Practitioner
DX: D69.6 Thrombocytopenia, unspecified (principal); S81.801A Unspecified open wound, right lower leg, initial encounter; R29.6 Repeated falls; F31.9 Bipolar disorder, unspecified; J44.9 Chronic obstructive pulmonary disease, unspecified; G47.33 Obstructive sleep apnea (adult) (pediatric); F17.200 Nicotine dependence, unspecified, uncomplicated; Z88.8 Allergy status to other drugs, medicaments and biological substances; B18.1 Chronic viral hepatitis B without delta-agent
CPT/HCPCS: 73590; 80048; 85025; 87040; 99285; J7030

== ENCOUNTER 2020-07-16 10:33 | Emergency (ER) | payer MEDICARE, MEDICAID, SELFPAY ==
[2020-07-16 10:35] VITALS: BP 118/83; PULSE 87; RESP 18; TEMP 36.4; O2SAT 92; BMI 29.5
--- NOTE | 2020-07-16 10:50 | CT_ITS ---
INDICATION: PAINLESS JAUNDICE. HEP B EXAMINATION: CT ABDOMEN AND PELVIS WITH CONTRAST - CT Abdomen And Pelvis W/ Contrast Injection COMPARISON: None. FINDINGS: TECHNIQUE: A CT scan of the abdomen and pelvis was performed initially withIV contrast contrast administration. Oral contrast was also administered. Coronal and sagittal reconstruction images were reviewed. This exam was performed according to our departmental dose-optimization program, which includes automated exposure control, adjustment of the mA and/or kV according to patient size and/or use of iterative reconstruction technique. FINDINGS: The lung bases and the base of the heart are normal. The liver is normal.The spleen is normal.The adrenal glands are normal.The head, body, and tail of the pancreas are normal. The right and left kidneys were examined and appear to be normal. Both ureters appear to be normal, and no obstructive uropathy is identified. The abdominal aortal is normal along its course and distribution. No paraortic lymphadenopathy is seen. No abdominal masses or lesions are seen. The CT scan of the pelvis was then reviewed. The common iliac vessels, external iliac vessels, and common femoral vessels are normal along their course and distribution No pelvis masses or lesions are seen. The appendix was not visualized. No pericecal inflammatory reaction is seen. Bone scanning windows of the lumbar spine and pelvis were reviewed in the coronal and sagittal planes and appear to be normal. CT/Abdomen/Pelvis WITH Contrast IMPRESSION: Normal CT scan of the abdomen and pelvis. Electronically Signed: Ousmane Esqueda, at 13:46 EST Tel , Service support ,
[2020-07-16 11:42] LABS: Absolute Lymphocyte Count 0.69 X10^3/uL (0.83-4.51); Absolute Neutrophil Count 1.8 X10^3/uL (2.0-7.7); Basophil# 0.02 X10^3/uL; Basophil% 0.7 % (0-1); Eosinophil# 0.01 X10^3/uL; Eosinophils% 0.3 % (0-5); Hemoglobin 13.5 g/dL (12.0-15.0); Lymphocyte # 0.69 X10^3/ul (4.0); Lymphocyte % 23.2 % (19-41); Mean Corp Hgb Conc 32.9 g/dL (32-36); Mean Corpuscular Hgb 33.6 pg (27.0-32.0); Monocyte# 0.45 X10^3/uL; Monocyte% 15.1 % (0-10); NRBC Flagged by Analyzer 0 % (0-5); Neutrophil # 1.78 X10^3/uL (2.7-7.7); Neutrophil % 59.7 % (47-70); POSITIVE COUNT YES; POSITIVE MORPHOLOGY YES; RBC Distribution Width SD 73.6 fl (35.1-43.9); Red Blood Count 4.02 M/mm3 (4.2-5.4)
[2020-07-16 11:49] LABS: Differential Indicated SCAN CRITERIA MET; Platelet Count 30 K/mm3 (150-450)
--- NOTE | 2020-07-16 11:53 | ED.VIS.GEN ---
History of Present Illness Chief Complaint: General Illness Informant: Patient, Merchandise Team Manager Onset: Days, Weeks Context: - - Patient does not feel well. Timing: Continuous Quality: Malaise, unintentional weight loss, swelling of her lower extremities Location: Generalized Current Severity: Moderate Maximum Severity: Moderate Worsened by: Nothing Relieved by: Nothing Associated Symptoms: Read HPI Narrative: Patient is an elderly woman who lives alone. Per EMS run sheet Adult Protective Services has been involved. Patient was unaware that her skin was yellow. She does report dark-colored urine. She is concerned because her feet are swollen and discolored. She does complain of vague headache. She denies double vision, blurred vision loss of vision. She reports thirst. He denies rhinorrhea, congestion or postnasal drainage. Denies loss of taste or smell. She denies ringing or ears or decreased hearing. She denies chest discomfort. She does report shortness of breath with minimal activity. She denies increasing abdominal girth. She denies black or maroon-colored stool. Review of records indicates she has history of hepatitis B. She was recently seen here. Blood work on the was reviewed. A liver panel was not obtained. There was no documentation that patient had jaundice. Prior similar symptoms: Yes Recent Illness/Hospitalization: Yes - Past Medical History (1) History of thrombocytopenia Status: Acute (2) History of neutropenia Status: Acute (3) Bipolar disorder Status: Chronic (4) COPD (chronic obstructive pulmonary disease) Status: Chronic (5) Hepatitis B Status: Chronic (6) Obstructive sleep apnea Status: Chronic Past Medical History - Allergies and Home Meds Allergies/Adverse Reactions: Allergies ondansetron [From Zofran] Allergy (Verified 07/16/20 10:34) Anaphylaxis Primary Care Physician: Elizabet Shetty EXECUTIVE SALES MANAGER, EXECUTIVE SALES MANAGER-C [Primary Care Provider] - Prior records reviewed: Yes Surgical History: noncontributory Lives: Alone Smoking Status: Current every day smoker Alcohol: None Drugs: None Review of Systems General: Reports: Malaise, Weight loss. Denies: Chills, Fever, Subjective, Sweats Eyes: Denies: Visual changes - bilaterally, Blurred Vision - bilaterally ENT: Denies: Bilateral ear pain, Rhinorrhea, Sore throat Cardiovascular: Denies: Chest pain, Palpitations Respiratory: Reports: Dyspnea, Cough, Dyspnea on exertion. Denies: Sputum Gastrointestinal: Denies: Abdominal pain, Nausea, Vomiting, Melena, Hematochezia Genitourinary: Denies: Dysuria, Hematuria, Frequency Musculoskeletal: Reports: Swelling, Extremity Pain. Denies: Myalgias, Arthralgias, Neck pain, Back pain Skin: Reports: Rash Neurological: Reports: Headache, Weakness. Denies: Parasthesia Endocrine: Reports: Polyuria, Polydipsia Hematologic: Reports: Easy bruising Allergy: Denies: Uticaria Physical Exam Vital Signs/Narrative: Vital Signs Temp Pulse Resp BP Pulse Ox 07/16/20 10:35 97.6 F L 87 18 118/83 H 92 Inital Vital Signs reviewed: Yes General: Well nourished, Well developed, Obese, - - Patient does not appear well. Eyes: Perrl, EOMI, Scleral icterus. Negative for: Pale conjunctiva ENT: No rhinorrhea, TM's clear Neck: Supple, Nontender, No lymphadenopathy. Negative for: No JVD - Unable to determine because of body habitus. Cardiovascular: Regular rate, Regular rhythm, No murmurs, Normal S1, Normal S2 Respiratory: No distress, CTA bilaterally, Chest nontender Abdomen: Soft, Nontender, Nondistended, No masses, Hypoactive bowel sounds. Negative for: Normal bowel sounds Back: Nontender, Normal Inspection Extremities: Tenderness, Edema - Pitting edema 6 to 8 mm.. Negative for: Nontender, No edema Skin: No rash - Venous stasis changes of the lower extremity including feet. There is also petechia noted lower extremity bilaterally., Jaundice. Negative for: Cyanosis, Diaphoresis Neurological: Oriented x3, Cranial nerves II-XII grossly intact, Normal Sensation. Negative for: Alert, Normal Gait Psychological: Depressed Diagnostic/Tx/Re-eval Impressions Abdomen/Pelvis CT 07/16/20 10:50 IMPRESSION: Normal CT scan of the abdomen and pelvis. Electronically Signed: Ousmane Dheeraj, at 13:46 EST Tel , Service support , 07/16/20 10:50 Abdomen/Pelvis WITH Contrast [CT] Stat Laboratory Results 07/16/20 07/16/20 07/16/20 11:25 11:25 11:25 WBC 3.0 L RBC 4.02 L Hgb 13.5 Hct 41.0 MCV 102.0 H MCH 33.6 H MCHC 32.9 RDW Std Deviation 73.6 H RDW Coeff of Jaci 20.0 H Plt Count 30 L* Immature Gran % (Auto) 1.000 H Neut % (Auto) 59.7 Lymph % (Auto) 23.2 Archer % (Auto) 15.1 H Eos % (Auto) 0.3 Baso % (Auto) 0.7 Absolute Neuts (auto) 1.8 L Absolute Lymphs (auto) 0.69 L Nucleated RBC % 0 Differential Comment SCANNED Diff Path Review May foll Platelet Estimate MKD DEC RBC Morphology N CHROM Macrocytosis 2+ PT Cancelled INR Cancelled APTT Cancelled Sodium 131 L Potassium 4.8 Chloride 100 Carbon Dioxide 26.0 Anion Gap 5 BUN 27 H Creatinine 1.12 H Estim Creat Clear Calc 45.06 Est GFR (MDRD) Af Amer 63 Est GFR (MDRD) Non-Af 52 L BUN/Creatinine Ratio 24.1 H Glucose 99 Calcium 9.4 Total Bilirubin 7.50 H AST 1813 H ALT 1578 H Alkaline Phosphatase 141 H Ammonia Total Protein 8.7 H Albumin 2.8 L Globulin 5.9 H Albumin/Globulin Ratio 0.5 L Lipase 49 L 07/16/20 07/16/20 12:50 13:10 WBC RBC Hgb Hct MCV MCH MCHC RDW Std Deviation RDW Coeff of Jaci Plt Count Immature Gran % (Auto) Neut % (Auto) Lymph % (Auto) Archer % (Auto) Eos % (Auto) Baso % (Auto) Absolute Neuts (auto) Absolute Lymphs (auto) Nucleated RBC % Differential Comment Diff Path Review Platelet Estimate RBC Morphology Macrocytosis PT 15.9 H INR 1.3 APTT 26.6 Sodium Potassium Chloride Carbon Dioxide Anion Gap BUN Creatinine Estim Creat Clear Calc Est GFR (MDRD) Af Amer Est GFR (MDRD) Non-Af BUN/Creatinine Ratio Glucose Calcium Total Bilirubin AST ALT Alkaline Phosphatase Ammonia 14.0 Total Protein Albumin Globulin Albumin/Globulin Ratio Lipase Needle was added because patient at times appeared confused to rule out hepatic encephalopathy. Patient did have blood work the beginning of May and liver enzymes and bilirubin were normal. With history of hepatitis B this may be a acute flare. There is no evidence of abnormalities suggest pancreatic or liver cancer. View of records indicates patient has history of neutropenia and thrombocytopenia. Since patient had a significant deterioration from prior to visits and unable to care for self hospitalist has been called for admission to evaluate why she is jaundice. - Medical Decision Making With unintentional weight loss of 30 pounds, jaundice need to evaluate for malignancy and specifically pancreatic. Blood work was obtained. CT of the abdomen and pelvis with p.o. and IV contrast was obtained. estimation manager was consulted. Patient refused to be admitted without her dog. Jeanne will contact APS. Patient will be discharged to home. She does have the capacity to make a decision to go home. ED Disposition - Plan for ED Patient: Disposition: Home or Assisted Living Diagnosis: Painless jaundice, Elevated liver transaminase level, Petechial rash, Neutropenia, Thrombocytopenia, Dependent edema, Unintentional weight loss of 10% body weight within 6 months Referrals: Elizabet Shetty EXECUTIVE SALES MANAGER, EXECUTIVE SALES MANAGER-C [Primary Care Provider] - 3-5 Days Additional Instructions: You need to follow-up with Elizabet Shetty for repeat blood work in the next 3 to 5 days.
[2020-07-16 12:02] LABS: Differential Comment SCANNED; Macrocytosis 2+; Platelet Estimate MKD DEC (ADEQ); Red Cell Morphology N CHROM NORMAL (NORM C&C)
[2020-07-16 12:03] LABS: ALB/GLOB Ratio 0.5 RATIO (0.9-2.4); AST(SGOT) 1813 U/L (15-37); Alanine Aminotransfer ALT/SGPT 1578 U/L (13-56); Albumin, Serum 2.8 g/dL (3.2-5.0); Alkaline Phosphatase 141 U/L (45-117); Anion Gap 5 (5-15); BUN 27 mg/dL (7-18); BUN/Creat Ratio 24.1 RATIO (10-20); Calcium,Total 9.4 mg/dL (8.5-10.1); Chloride 100 mmol/L (98-107); Creatinine, Serum 1.12 mg/dL (0.55-1.02); EST Glomerular Filtration Rate 52 mL/min (>60); Est Glom Filt Rate - Afr Amer 63 mL/min (>60); Estimated Creatinine Clearance 45.06 ml/min; Globulin 5.9 g/dL (2.2-4.2); Glucose 99 mg/dL (74-106); Lipase 49 U/L (73-393); Potassium 4.8 mmol/L (3.5-5.1); Protein, Total 8.7 g/dL (6.4-8.2); Sodium Level 131 mmol/L (136-145)
--- NOTE | 2020-07-16 12:20 | ED.RN ---
rn into room to obtain blood. pt's 88% on RA. RN applied 3L NC. pulse ox to 97%. dr. ag notified at this time. rn will continue to monitor.
[2020-07-16 13:10] LABS: International Normalized Ratio 1.3; Partial Thromboplast Time 26.6 Seconds (24.1-36.2); Prothrombin Time (Protime)PT. 15.9 SECONDS (11.7-14.9)
[2020-07-16 13:48] VITALS: BP 137/80; PULSE 78; RESP 17; O2SAT 100
[2020-07-16 14:26] VITALS: BMI 29.5
[2020-07-16 14:46] VITALS: BP 125/79; PULSE 79; RESP 16; O2SAT 98
[2020-07-19 12:56] LABS: Pathologist Review Reviewed
== END 2020-07-16 15:54 | disposition home or self-care (01) ==
PROVIDERS: Emergency Provider Emergency Medicine; PCP Nurse Practitioner
DX: R17 Unspecified jaundice (principal); D69.6 Thrombocytopenia, unspecified; R74.01 Elevation of levels of liver transaminase levels; R63.4 Abnormal weight loss; R60.9 Edema, unspecified; D70.9 Neutropenia, unspecified; F17.200 Nicotine dependence, unspecified, uncomplicated; F31.9 Bipolar disorder, unspecified; G47.33 Obstructive sleep apnea (adult) (pediatric); J44.9 Chronic obstructive pulmonary disease, unspecified; Z88.8 Allergy status to other drugs, medicaments and biological substances; B18.1 Chronic viral hepatitis B without delta-agent
CPT/HCPCS: 74177; 80053; 82140; 83690; 85025; 85610; 85730; 99284; Q9967; A4216